=== PATIENT | female | born 1945 | race Caucasian/White ===

== ENCOUNTER → 2020-01-24 | Outpatient (CLI) | payer MEDICARE ==
[~2020-01-24] MED LIST: GLIP-142 PO; INSU100V8 SQ; OXYB5TAB10 PO; PIOG30TA67 PO
== END | disposition home or self-care (01) ==
LOC: CVU 13:06
PROVIDERS: ATTEND Internal Medicine Cardiovascular Disease
DX: I51.7 Cardiomegaly (principal); I70.8 Atherosclerosis of other arteries; R06.02 Shortness of breath; R60.9 Edema, unspecified
CPT/HCPCS: 93306

== ENCOUNTER 2020-10-15 11:46 | Emergency (ER) | payer MEDICARE ==
[~2020-10-15] VITALS: Ht 157.5 cm; Wt 152.6 kg
--- NOTE | 2020-10-15 12:27 | NUR ---
Pt states low back/flank pain with nausea. Able to ambulate to restroom with cane. Some dyspnea w/ exertion, no O2 required.
[2020-10-15] MEDS ORDERED: KETOROLAC 30 MG/1 ML ONE (12:30)
[2020-10-15] MEDS ORDERED: ONDANSETRON 2MG/ML, 2ML IVPush ONE (12:30)
[2020-10-15] MEDS ORDERED: KETOROLAC 30 MG/1 ML IVPush ONE (12:30)
[2020-10-15] MEDS ORDERED: ONDANSETRON 2MG/ML, 2ML ONE (12:31)
[2020-10-15 12:35] LABS: MICROSCOPIC AUTO
[2020-10-15 12:46] VITALS: BP 147/73
--- NOTE | 2020-10-15 12:46 | NUR ---
Medicated for nausea
[2020-10-15 12:53] LABS: BASOPHILS % (AUTO) 0 % (0-1); EOSINOPHILS % (AUTO) 1 % (1-7); LYMPHOCYTES % (AUTO) 19 % (22-44); MEAN CORPUSCULAR HEMOGLOBIN 31.8 pg (27.0-34.8); MEAN CORPUSCULAR HGB CONC 33.6 g/dL (32.4-35.8); MEAN PLATELET VOLUME 7.4 fL (7.4-10.4); MONOCYTES % (AUTO) 8 % (2-9); NEUTROPHILS % (AUTO) 72 % (42-75); PLATELET COUNT 213 x10^3/uL (130-400); RED BLOOD COUNT 4.11 x10^6/uL (3.82-5.3); RED CELL DISTRIBUTION WIDTH 13.8 % (9.6-15.2)
[2020-10-15 12:55] LABS: MD NO
[2020-10-15 12:57] LABS: CHLORIDE 106 mmol/L (98-107)
[2020-10-15 13:17] LABS: ALANINE AMINOTRANSFERASE 24 U/L (12-78); ALBUMIN 3.7 g/dL (3.4-5.0); ALKALINE PHOSPHATASE 75 U/L (45-117); ANION GAP 6 mmol/L (5-15); BILIRUBIN,TOTAL 0.4 mg/dL (0.2-1.0); CALCIUM 9.2 mg/dL (8.5-10.1); CREATININE 0.76 mg/dL (0.55-1.02); TOTAL PROTEIN 6.9 g/dL (6.4-8.2)
--- NOTE | 2020-10-15 13:56 | NUR ---
BREAK RN: ERP AT FOR RECHECK.
--- NOTE | 2020-10-15 14:07 | NUR ---
BREAK RN- DC INSTRUCTIONS REVIEWED
[2020-10-15] MEDS ORDERED: HYDROcodone/APAP 5/325 TABLET ONE (14:18)
[2020-10-15] MEDS ORDERED: HYDROcodone/APAP 5/325 TABLET PO ONE (15:00)
== END 2020-10-15 14:09 | disposition home or self-care (01) ==
LOC: ED 13:28
DX: S39.012A Strain of muscle, fascia and tendon of lower back, initial encounter (principal); S29.012A Strain of muscle and tendon of back wall of thorax, initial encounter; R10.9 Unspecified abdominal pain; R11.0 Nausea; I10 Essential (primary) hypertension; E11.9 Type 2 diabetes mellitus without complications; Z90.49 Acquired absence of other specified parts of digestive tract; X58.XXXA Exposure to other specified factors, initial encounter; Y93.89 Activity, other specified; Y92.89 Other specified places as the place of occurrence of the external cause; Y99.8 Other external cause status
CPT/HCPCS: 36415; 74176; 80053; 81001; 85025; 96374; 96375; 99284; J1885; J2405